=== PATIENT | male | born 1955 | race Caucasian/White ===

== ENCOUNTER 2021-01-17 12:04 | Inpatient (IN) | payer OTHER ==
[~2021-01-17] VITALS: Ht 190.5 cm; Wt 133.8 kg
[~2021-01-17 12:04] MED LIST: GABAPENTIN300 MG PO; LIDODERM TOP; NORCO 10-325 T1 EACH PO; PREDNISONE5 MG PO; TIZANIDINE HCL4 MG PO
[2021-01-17] MEDS ORDERED: SODIUM CHLORIDE 0.9% 1000ML 1,000 ML IV SCH (12:45)
[2021-01-17] MEDS ORDERED: DILTIAZEM HCL 5 MG/ML 5 ML VIAL IV STA ×2 (12:46→13:52)
[2021-01-17 13:04] LABS: BASOPHILS % 0.6 % (0.0-1.0); EOSINOPHILS # (AUTO) 0.1 (0.0-0.4); EOSINOPHILS % 1.7 % (0.0-6.0); HEMATOCRIT 46.1 % (38.2-49.6); HEMOGLOBIN 15.5 g/dL (14.0-18.0); LYMPHOCYTES # (AUTO) 1.6 (1.0-3.2); LYMPHOCYTES % 24.1 % (18.0-39.1); MEAN CORPUSCULAR HEMOGLOBIN 30.5 pg (28-32); MEAN CORPUSCULAR HGB CONC 33.6 g/dL (31-35); MEAN CORPUSCULAR VOLUME 90.7 fL (81-99); MONOCYTES # (AUTO) 0.6 (0.2-0.8); MONOCYTES % 8.5 % (4.4-11.3); NEUTROPHILS # (AUTO) 4.2 (2.1-6.9); NEUTROPHILS % 64.2 % (38.7-80.0); PLATELET COUNT 169 x10e3/uL (140-360); RED BLOOD COUNT 5.08 x10e6/uL (4.3-5.7); RED CELL DISTRIBUTION WIDTH 12.2 % (11.7-14.4)
[2021-01-17 13:12] LABS: INR 0.98; PROTHROMBIN TIME 13.8 seconds (11.9-14.5)
[2021-01-17] MEDS ORDERED: KETOROLAC TROMETHAMINE 30 MG/ML VIAL IV ONE (13:15)
[2021-01-17 13:21] LABS: ALBUMIN 4.1 g/dL (3.5-5.0); ALBUMIN/GLOBULIN RATIO 1.4 (0.8-2.0); ANION GAP 17.1 mmol/L (8-16); CALCIUM 9.3 mg/dL (8.4-10.2); CREATININE, SERUM 0.88 mg/dL (0.72-1.25); POTASSIUM 4.1 mmol/L (3.5-5.1)
[2021-01-17] MEDS ORDERED: ASPIRIN 81 MG CHEW TAB PO ONE (15:00)
[2021-01-17 16:28] VITALS: BP 129/90
[2021-01-17 16:30] VITALS: BP 129/90
[2021-01-17] MEDS: ACETAMINOPHEN 325 MG TAB PO PRN (17:55)
[2021-01-17] MEDS ORDERED: ONDANSETRON HCL INJ 2MG/ML 2ML 2 MG/ML VIAL IV PRN (18:30)
[2021-01-17] MEDS ORDERED: METOPROLOL TARTRATE INJ 1 MG/ML VIAL IV PRN (18:30)
[2021-01-17 19:15] LABS: CREATINE KINASE MB 1.4 ng/mL (0-5.0)
[2021-01-17 20:00] VITALS: BP 134/91
[2021-01-17 20:40] VITALS: BP 134/81
[2021-01-17] MEDS ORDERED: DEXTROSE 50% SYRINGE 50 ML IV PRN (22:15)
[2021-01-18] VITALS (8 sets, daily range): BP systolic 102–149; BP diastolic 70–99
[2021-01-18 06:36] LABS: BASOPHILS % 0.8 % (0.0-1.0); EOSINOPHILS # (AUTO) 0.1 (0.0-0.4); HEMATOCRIT 45.3 % (38.2-49.6); HEMOGLOBIN 14.9 g/dL (14.0-18.0); LYMPHOCYTES # (AUTO) 1.3 (1.0-3.2); LYMPHOCYTES % 27.1 % (18.0-39.1); MEAN CORPUSCULAR HEMOGLOBIN 30.3 pg (28-32); MEAN CORPUSCULAR HGB CONC 32.9 g/dL (31-35); MEAN CORPUSCULAR VOLUME 92.1 fL (81-99); MONOCYTES # (AUTO) 0.5 (0.2-0.8); MONOCYTES % 9.9 % (4.4-11.3); NEUTROPHILS # (AUTO) 2.7 (2.1-6.9); NEUTROPHILS % 57.9 % (38.7-80.0); PLATELET COUNT 132 x10e3/uL (140-360); RED BLOOD COUNT 4.92 x10e6/uL (4.3-5.7); RED CELL DISTRIBUTION WIDTH 12.3 % (11.7-14.4)
[2021-01-18 07:14] LABS: CREATINE KINASE MB 1.3 ng/mL (0-5.0)
[2021-01-18 07:20] LABS: ALBUMIN 3.5 g/dL (3.5-5.0); ALBUMIN/GLOBULIN RATIO 1.3 (0.8-2.0); ANION GAP 14.9 mmol/L (8-16); CALCIUM 8.8 mg/dL (8.4-10.2); CREATININE, SERUM 0.81 mg/dL (0.72-1.25); POTASSIUM 3.9 mmol/L (3.5-5.1)
[2021-01-18] MEDS: INSULIN LISPRO 100 UNIT/1 ML 3ML VIAL SQ SCH ×4 (07:30→20:28)
[2021-01-18] MEDS: INSULIN GLARGINE 100 UNITS/ML VIAL SQ SCH ×2 (08:00→20:28)
[2021-01-18 08:09] LABS: CHOL/HDL RATIO 7.4 (3.9-4.7); CHOLESTEROL 230 MD/DL (0-199); HDL CHOLESTEROL 31 MG/DL (40-60); TRIGLYCERIDES 404 MG/DL (0-149)
[2021-01-18] MEDS ORDERED: METOPROLOL SUCCINATE 25 MG TAB XL PO SCH (09:00)
[2021-01-18] MEDS: METOPROLOL TARTRATE 25 MG TAB PO SCH ×2 (13:02→17:31)
[2021-01-18 14:25] LABS: CREATINE KINASE MB 1.1 ng/mL (0-5.0)
[2021-01-18] MEDS: APIXABAN 5 MG TABLET PO SCH (16:53)
[2021-01-19] VITALS (8 sets, daily range): BP systolic 98–137; BP diastolic 56–76
[2021-01-19] MEDS: METOPROLOL TARTRATE 25 MG TAB PO SCH ×2 (05:43)
[2021-01-19] MEDS: INSULIN LISPRO 100 UNIT/1 ML 3ML VIAL SQ SCH ×4 (07:39→19:55)
[2021-01-19] MEDS: APIXABAN 5 MG TABLET PO SCH (09:00)
[2021-01-19] MEDS: INSULIN GLARGINE 100 UNITS/ML VIAL SQ SCH ×2 (09:15→20:45)
[2021-01-19] MEDS: ACETAMINOPHEN 325 MG TAB PO PRN (09:17)
[2021-01-19] MEDS ORDERED: ENOXAPARIN INJ 80 MG/0.8 ML SYR SC STA (09:28)
[2021-01-19] MEDS ORDERED: ASPIRIN 325 MG TAB PO ONE (09:30)
[2021-01-19] MEDS ORDERED: ENOXAPARIN SODIUM INJ 100 MG/ML SYR SC ONE (10:00)
[2021-01-19] MEDS ORDERED: ENOXAPARIN 30 MG/0.3 ML SYR SC ONE (10:00)
[2021-01-19] MEDS: METOPROLOL TARTRATE 50 MG TAB PO SCH ×2 (11:14→17:08)
[2021-01-19] MEDS: TRAMADOL HCL 50 MG TAB PO PRN ×2 (13:50→20:00)
[2021-01-19] MEDS ORDERED: ATORVASTATIN 40 MG TAB PO SCH (21:00)
[2021-01-19] MEDS ORDERED: ENOXAPARIN INJ 80 MG/0.8 ML SYR SC SCH (21:00)
[2021-01-19] MEDS ORDERED: ATORVASTATIN 20 MG TAB PO SCH (21:00)
[2021-01-19] MEDS: ENOXAPARIN 30 MG/0.3 ML SYR SC SCH (21:00)
[2021-01-19] MEDS: ENOXAPARIN SODIUM INJ 100 MG/ML SYR SC SCH (21:00)
[2021-01-20] VITALS (12 sets, daily range): BP systolic 99–138; BP diastolic 59–90
[2021-01-20] MEDS: METOPROLOL TARTRATE 50 MG TAB PO SCH ×3 (04:10→15:03)
[2021-01-20] MEDS: INSULIN LISPRO 100 UNIT/1 ML 3ML VIAL SQ SCH ×2 (07:30→11:30)
[2021-01-20] MEDS: INSULIN GLARGINE 100 UNITS/ML VIAL SQ SCH (07:59)
[2021-01-20] MEDS ORDERED: ONDANSETRON HCL 4 MG ORAL DISINTEGRATING TAB PO PRN (08:45)
[2021-01-20] MEDS ORDERED: ASPIRIN 81 MG CHEW TAB PO SCH (09:00)
[2021-01-20] MEDS: ENOXAPARIN SODIUM INJ 100 MG/ML SYR SC SCH (09:00)
[2021-01-20] MEDS: ENOXAPARIN 30 MG/0.3 ML SYR SC SCH (09:00)
[2021-01-20] MEDS ORDERED: MIDAZOLAM HCL 2 MG/2 ML VIAL ONE (10:34)
[2021-01-20] MEDS ORDERED: LIDOCAINE HCL 2% LOCAL 20 ML VIAL ONE (10:34)
[2021-01-20] MEDS ORDERED: FENTANYL CITRATE/PF 100MCG/2 ML INJ ONE (10:34)
[2021-01-20] MEDS ORDERED: HEPARIN SOD/SOD CHLORIDE 2,000 ML ONE (10:35)
[2021-01-20] MEDS ORDERED: IOPAMIDOL 370 MG/ML 200 ML INFUS..BTL INJ ONE (10:35)
[2021-01-20] MEDS ORDERED: SODIUM CHLORIDE 0.9% 1000ML 1,000 ML ONE (10:35)
[2021-01-20] MEDS ORDERED: VERAPAMIL HCL 2.5 MG/ML 2 ML VIAL ONE (10:58)
[2021-01-20] MEDS: TRAMADOL HCL 50 MG TAB PO PRN (15:05)
[2021-01-20 15:41] LABS: ALBUMIN 3.8 g/dL (3.5-5.0); ALBUMIN/GLOBULIN RATIO 1.4 (0.8-2.0); ANION GAP 15.8 mmol/L (8-16); CREATININE, SERUM 0.86 mg/dL (0.72-1.25); POTASSIUM 3.8 mmol/L (3.5-5.1)
== END 2021-01-20 16:00 | disposition home or self-care (01) | DRG 286 ==
LOC: ER 12:42 → ERHOLD 14:48 → MED/SURG 16:30
PROVIDERS: ADMIT Family Medicine; ATTEND Family Medicine
PROC: 4A023N7 Measurement of Cardiac Sampling and Pressure, Left Heart, Percutaneous Approach (ICD-10-PCS; principal; 2021-01-20)
PROC: B2111ZZ Fluoroscopy of Multiple Coronary Arteries using Low Osmolar Contrast (ICD-10-PCS; 2021-01-20)
PROC: B2151ZZ Fluoroscopy of Left Heart using Low Osmolar Contrast (ICD-10-PCS; 2021-01-20)
DX: I48.4 Atypical atrial flutter (principal); I50.41 Acute combined systolic (congestive) and diastolic (congestive) heart failure; I25.110 Atherosclerotic heart disease of native coronary artery with unstable angina pectoris; Z79.01 Long term (current) use of anticoagulants; E78.2 Mixed hyperlipidemia; R74.01 Elevation of levels of liver transaminase levels; E11.9 Type 2 diabetes mellitus without complications; I48.91 Unspecified atrial fibrillation; E66.01 Morbid (severe) obesity due to excess calories; Z68.36 Body mass index [BMI] 36.0-36.9, adult; I10 Essential (primary) hypertension; G47.33 Obstructive sleep apnea (adult) (pediatric); E78.5 Hyperlipidemia, unspecified; I42.0 Dilated cardiomyopathy; I11.0 Hypertensive heart disease with heart failure; Z20.822 Contact with and (suspected) exposure to COVID-19
CPT/HCPCS: 36415; 71045; 80053; 80061; 82550; 82553; 82948; 83036; 84443; 84484; 85025; 85610; 93005; 93306; 93458; 93880; 94799; 96360; 96372; 99152; 99153; 99284; C1887; J1650; J1815; J1885; J2001; J2250; J3010; J7030; Q9967; U0002

== ENCOUNTER → 2021-07-18 | Outpatient (CLI) | payer OTHER ==
[~2021-07-18] MED LIST changes: +ASPIRIN EC81 MG PO; +ATORVASTATIN CA40 MG PO; +CLEOCIN HCL300 MG PO; +CLOPIDOGREL75 MG PO; +FARXIGA10 MG PO; +FLOMAX0.4 MG PO; +FUROSEMIDE40 MG PO; +LANTUS 3ML100 UNITS/ SQ; +LEVOTHYROXINE50 MCG PO; +METFORMIN HCL500 MG PO; +METOPROLOL TART25 MG PO; +ULTRAM50 MG PO; +VITAMIN B-121000 MC1 PO
== END ==
LOC: CT 09:28
PROVIDERS: ATTEND Internal Medicine Cardiovascular Disease
DX: J91.8 Pleural effusion in other conditions classified elsewhere (principal)
CPT/HCPCS: 71250

== ENCOUNTER → 2024-05-19 | Day surgery (SDC) | payer MEDICARE ==
[2024-05-15 11:45] LABS: BASOPHILS # (AUTO) 0.1 (0.0-0.1); EOSINOPHILS # (AUTO) 0.1 (0.0-0.4); EOSINOPHILS % 2.5 % (0.0-6.0); HEMATOCRIT 45.8 % (38.2-49.6); HEMOGLOBIN 15.2 g/dL (14.0-18.0); LYMPHOCYTES # (AUTO) 1.6 (1.0-3.2); LYMPHOCYTES % 32.1 % (18.0-39.1); MEAN CORPUSCULAR HEMOGLOBIN 34.9 pg (28-32); MEAN CORPUSCULAR HGB CONC 33.2 g/dL (31-35); MONOCYTES # (AUTO) 0.6 (0.2-0.8); MONOCYTES % 11.7 % (4.4-11.3); NEUTROPHILS # (AUTO) 2.5 (2.1-6.9); NEUTROPHILS % 51.9 % (38.7-80.0); PLATELET COUNT 150 x10e3/uL (140-360); RED BLOOD COUNT 4.36 x10e6/uL (4.3-5.7); RED CELL DISTRIBUTION WIDTH 13.8 % (11.7-14.4); WHITE BLOOD COUNT 4.89 x10e3/uL (4.8-10.8)
[~2024-05-19] MED LIST changes: +BACLOFEN10 MG PO; +D3-5000125 MCG; +FENTANYL CITRATE/PF 100MCG/2 ML INJ ONE; +FOLIC ACID0.4 MG PO; +GLUCAGON FOR INJ 1 MG VIAL ONE; +LIDOCAINE HCL 2% LOCAL INJ 5 ML SDV VIAL INJ ONE; +MAG GLYCINATE100 MG; +METHOCARBAMOL750 MG PO; +METHOTREXATE2.5 MG PO; +METOCLOPRAMIDE HCL 10 MG/2ML VIAL ONE; +MOUNJARO15 MG/0.5; +PROPOFOL IV EMULSION 10 MG/ML 20 ML VIAL ONE; +PROPOFOL IV EMULSION 50 ML IV ONE; +TESTOSTERONE SHOT; +VITAMIN C1000 MG PO
[2024-05-19] MEDS: LACTATED RINGER'S 1,000 ML ONE (08:29)
[2024-05-19 10:20] VITALS: TEMP 97.3
[2024-05-19 10:35] VITALS: BP 105/61; PULSE 75; RESP 18; O2SAT 100
== END | disposition home or self-care (01) ==
LOC: OR 06:57
PROVIDERS: ATTEND Internal Medicine Gastroenterology
DX: K29.50 Unspecified chronic gastritis without bleeding (principal); D12.4 Benign neoplasm of descending colon; K62.1 Rectal polyp; K20.90 Esophagitis, unspecified without bleeding; K44.9 Diaphragmatic hernia without obstruction or gangrene; K31.89 Other diseases of stomach and duodenum; K25.9 Gastric ulcer, unspecified as acute or chronic, without hemorrhage or perforation; K29.80 Duodenitis without bleeding; K62.6 Ulcer of anus and rectum; K57.30 Diverticulosis of large intestine without perforation or abscess without bleeding; K59.00 Constipation, unspecified; R19.5 Other fecal abnormalities; K64.8 Other hemorrhoids; Z98.84 Bariatric surgery status; E11.9 Type 2 diabetes mellitus without complications; I25.810 Atherosclerosis of coronary artery bypass graft(s) without angina pectoris; I11.0 Hypertensive heart disease with heart failure; I50.9 Heart failure, unspecified; I48.91 Unspecified atrial fibrillation; E03.9 Hypothyroidism, unspecified; M54.2 Cervicalgia; N20.0 Calculus of kidney; J39.8 Other specified diseases of upper respiratory tract; F41.9 Anxiety disorder, unspecified; Z01.810 Encounter for preprocedural cardiovascular examination; Z01.812 Encounter for preprocedural laboratory examination; Z79.82 Long term (current) use of aspirin; Z79.85 Long-term (current) use of injectable non-insulin antidiabetic drugs; Z79.899 Other long term (current) drug therapy; Z95.1 Presence of aortocoronary bypass graft
CPT/HCPCS: 36415 ×2; 43239; 45380; 45385; 82948; 85025; 88305; 88342; 93005; J1610; J2003; J2470; J2704 ×2; J2765; J3010; J7121; 45378

== ENCOUNTER → 2024-06-21 | Outpatient (REF) | payer MEDICARE ==
[~2024-06-21] MED LIST changes: -FENTANYL CITRATE/PF 100MCG/2 ML INJ ONE; -GLUCAGON FOR INJ 1 MG VIAL ONE; -LIDOCAINE HCL 2% LOCAL INJ 5 ML SDV VIAL INJ ONE; -METOCLOPRAMIDE HCL 10 MG/2ML VIAL ONE; -PROPOFOL IV EMULSION 10 MG/ML 20 ML VIAL ONE; -PROPOFOL IV EMULSION 50 ML IV ONE
== END ==
LOC: NM 08:47
PROVIDERS: ATTEND Nurse Practitioner
DX: K31.84 Gastroparesis (principal)
CPT/HCPCS: 78264; A9541